=== PATIENT | female | born 1975 | race Two or more races ===

== ENCOUNTER 2025-03-14 14:20 | Inpatient (IN) | payer OTHER ==
[2025-03-14] MEDS ORDERED: KETOROLAC TROMETHAMINE 15 MG/ML VIAL ONE (15:11)
[2025-03-14] MEDS ORDERED: ACETAMINOPHEN INJECTION 100 ML ONE (15:11)
[2025-03-14] MEDS ORDERED: CEFTRIAXONE 1 GM/50 ML BAG ONE (15:12)
[2025-03-14] MEDS: SODIUM CHLORIDE 0.9% 1000 ML INFUS.BAG IV ONE (15:30)
[2025-03-14 16:00] LABS: ABSOLUTE IMMATURE GRANULOCYTES 0.13 x10^3/uL (0.0-0.031); BASOPHILS # 0.05 x10^3/uL (0.01-0.08); EOSINOPHIL % 0.2 % (0.7-5.8); EOSINOPHILS # 0.04 x10^3/uL (0.04-0.36); MCHC 30.6 g/dl (32.2-35.5); MEAN CELL VOLUME 75.5 fl (79.4-94.8); MEAN PLT VOLUME 9.9 fl (9.4-12.3); MONOCYTE # 1.05 x10^3/uL (0.24-0.86); MONOCYTE % 5.8 % (4.7-12.5); RDW 15.3 % (12.2-17.1)
[2025-03-14] MEDS: KETOROLAC TROMETHAMINE 15 MG/ML VIAL IVPUSH ONE (16:00)
[2025-03-14] MEDS: ACETAMINOPHEN 1000 MG/100 ML BAG IVPB ONE (16:03)
[2025-03-14] MEDS: CEFTRIAXONE 1 GM in DEXTROSE 5%-WATER - 100 ML IVPB ONE (16:04)
[2025-03-14 16:09] LABS: INR 1.06 (0.83-1.09); PROTHROMBIN TIME (PATIENT) 11.5 SEC (9.7-13.0)
[2025-03-14 16:18] LABS: ACTIVATED PTT 25.3 SECONDS (25.2-36.5)
[2025-03-14 16:26] LABS: CO2 31.0 mmol/L (21-32); GLUCOSE,RANDOM 151.0 mg/dL (74-106)
[2025-03-14 16:29] LABS: CREATININE 0.8 mg/dL (0.55-1.3); SGOT/AST 50.0 U/L (15-37); SGPT/ALT 48.0 U/L (13-61)
[2025-03-14 16:30] LABS: TOT PROT 7.3 g/dl (6.4-8.2)
[2025-03-14 16:32] LABS: ALK PHOS 217.0 U/L (45-117)
[2025-03-14 16:38] LABS: LACTIC ACID 2.6 mmol/L (0.4-2.0)
[2025-03-14] MEDS ORDERED: POTASSIUM CHLORIDE ORAL LIQUID 20 MEQ/15 ML ONE (17:11)
[2025-03-14] MEDS: POTASSIUM CHLORIDE ORAL LIQUID 20 MEQ/15 ML PO ONE (17:13)
[2025-03-14 17:20] LABS: HIV INTERPRETATION NEGATIVE (NEGATIVE)
[2025-03-14 17:21] LABS: HCV DIAGNOSTIC IN-HOUSE W/RFLX NON-REACTIVE (NONREACTIVE)
[2025-03-14 17:37] LABS: URINE APPEARANCE Clear; URINE BILIRUBIN Negative (NEGATIVE); URINE COLOR Yellow; URINE GLUCOSE (UA) Negative (NEGATIVE); URINE KETONE Negative (NEGATIVE); URINE LEUK ESTERASE 1+ (NEGATIVE); URINE NITRITE Negative (NEGATIVE); URINE PROTEIN Negative (NEGATIVE); URINE UROBILINOGEN 0.2 mg/dL (0.2-1.0)
[2025-03-14 18:13] LABS: EPI CELLS 1.3 /uL (0-25.1); HYALINE CASTS 0.37 /uL (0-3.1); URINE RBC 15.3 /uL (0-23.9); URINE WBC 284.8 /uL (0-25.8)
[2025-03-14 18:14] LABS: URINE BACTERIA 811.6 /uL (0-1359)
[2025-03-14] MEDS ORDERED: ONDANSETRON 4 MG/2 ML VIAL IVPUSH PRN (20:24)
[2025-03-14] MEDS ORDERED: ACETAMINOPHEN 325 MG TABLET (FP) PO PRN (20:24)
[2025-03-14] MEDS ORDERED: KETOROLAC TROMETHAMINE 15 MG/ML VIAL IVPUSH PRN (20:24)
[2025-03-14] MEDS ORDERED: MORPHINE SULFATE 2 MG/ML SYRINGE IVPUSH PRN (20:24)
[2025-03-14] MEDS: SODIUM CHLORIDE 1,000 ML IV SCH (20:34)
[2025-03-14] MEDS ORDERED: INSULIN GLARGINE (LANTUS) 100 UNITS/ML UNITS SQ SCH (22:00)
[2025-03-14] MEDS ORDERED: INSULIN ASPART SLIDING SCALE (NOVOLOG) 1 VIAL SQ SCH (22:00)
[2025-03-14] MEDS: morphine CARPU-JECT 2 MG/1 ML DISP.SYRIN IVPUSH PRN (23:31)
[2025-03-15 00:48] VITALS: BMI 34.7
[2025-03-15] MEDS: PIPERACILLIN/TAZOB 4.5 GM 4.5 GM in DEXTROSE 5%-WATER 100 ML IVPB ONE (05:18)
[2025-03-15 08:14] LABS: MCHC 29.9 g/dl (32.2-35.5); MEAN CELL VOLUME 78.4 fl (79.4-94.8); MEAN PLT VOLUME 9.7 fl (9.4-12.3); RDW 15.8 % (12.2-17.1)
[2025-03-15 08:58] LABS: CO2 27.0 mmol/L (21-32); GLUCOSE,RANDOM 128.0 mg/dL (74-106)
[2025-03-15 09:00] LABS: SGPT/ALT 42.0 U/L (13-61)
[2025-03-15 09:01] LABS: CREATININE 0.4 mg/dL (0.55-1.3); SGOT/AST 34.0 U/L (15-37)
[2025-03-15 09:02] LABS: TOT PROT 5.4 g/dl (6.4-8.2)
[2025-03-15 09:07] LABS: ALK PHOS 132.0 U/L (45-117)
[2025-03-15] MEDS: ENOXAPARIN NA (PORCINE) 40 MG/0.4 ML DISP.SYRIN SQ SCH (09:31)
[2025-03-15] MEDS ORDERED: CEFTRIAXONE 1 GM in DEXTROSE 5%-WATER - 50 ML IVPB SCH (10:00)
[2025-03-15] MEDS: PIPERACILLIN/TAZOB 3.375 GM 3.375 GM in DEXTROSE 5%-WATER - 50 ML IVPB SCH (11:26)
[2025-03-15 14:54] LABS: IRON SERUM 19 ug/dL (50-175)
[2025-03-15 23:54] VITALS: RESP 18
[2025-03-16] MEDS: PIPERACILLIN/TAZOB 4.5 GM 4.5 GM in DEXTROSE 5%-WATER 100 ML IVPB SCH (01:19)
[2025-03-16 09:49] LABS: ABSOLUTE IMMATURE GRANULOCYTES 0.04 x10^3/uL (0.0-0.031); BASOPHILS # 0.05 x10^3/uL (0.01-0.08); EOSINOPHIL % 2.2 % (0.7-5.8); EOSINOPHILS # 0.22 x10^3/uL (0.04-0.36); MCHC 29.9 g/dl (32.2-35.5); MEAN CELL VOLUME 76.7 fl (79.4-94.8); MEAN PLT VOLUME 9.9 fl (9.4-12.3); MONOCYTE # 1.22 x10^3/uL (0.24-0.86); MONOCYTE % 12.1 % (4.7-12.5); RDW 15.5 % (12.2-17.1)
[2025-03-16 10:23] LABS: CO2 29.0 mmol/L (21-32); GLUCOSE,RANDOM 184.0 mg/dL (74-106)
[2025-03-16 10:25] LABS: CREATININE 0.6 mg/dL (0.55-1.3)
[2025-03-16 10:26] LABS: IRON SERUM 24.0 ug/dL (50-175); SGOT/AST 36.0 U/L (15-37); SGPT/ALT 62.0 U/L (13-61)
[2025-03-16 10:27] LABS: LDL CHOLESTEROL (ONLY SJRH) 61.0 mg/dL (5-100); TOT PROT 6.6 g/dl (6.4-8.2)
[2025-03-16 10:28] LABS: ALK PHOS 160.0 U/L (45-117)
[2025-03-16] MEDS ORDERED: KETOROLAC TROMETHAMINE 15 MG/ML VIAL IVPUSH PRN (14:49)
[2025-03-16] MEDS: CEFTRIAXONE 1 GM in DEXTROSE 5%-WATER - 50 ML IVPB SCH (16:33)
[2025-03-16 17:49] VITALS: BP 102/52; PULSE 78; TEMP 99
[2025-03-16] MEDS: LIDOCAINE HCL 5% TOP OINTMENT 50 GM TUBE TP ONE (19:09)
[2025-03-17] MEDS ORDERED: CEFTRIAXONE 1 GM in DEXTROSE 5%-WATER - 50 ML IVPB SCH (10:00)
== END 2025-03-16 19:14 | disposition home or self-care (01) | DRG 463 ==
LOC: JER 14:20 → JERBED 19:52 → INTOOBSV 19:52 → J5S 23:17 → OBSVTOIN 03-15 09:35
PROVIDERS: ADMIT Hospitalist; ATTEND Student in an Organized Health Care Education/Training Program
DX: N10 Acute pyelonephritis (principal); E87.20 Acidosis, unspecified; N13.30 Unspecified hydronephrosis; E87.6 Hypokalemia; R74.01 Elevation of levels of liver transaminase levels; K76.0 Fatty (change of) liver, not elsewhere classified; R00.0 Tachycardia, unspecified; E87.0 Hyperosmolality and hypernatremia; R73.03 Prediabetes; D50.9 Iron deficiency anemia, unspecified; E66.9 Obesity, unspecified; Z68.34 Body mass index [BMI] 34.0-34.9, adult; B96.20 Unspecified Escherichia coli [E. coli] as the cause of diseases classified elsewhere
CPT/HCPCS: 36415; 71045-TC-FY; 74177-TC; 76705-TC; 80053; 80061; 81003; 82728; 83036; 83540; 83550; 83605; 83690; 83735; 84484; 84703; 85025; 85027; 85610; 85730; 86803; 87040; 87086; 87389; 87637-QW; 93005; 93010; 99291; G0378